=== PATIENT | male | born 1965 | race African-American/Black ===

== ENCOUNTER 2021-11-23 16:18 | Inpatient (IN) | payer OTHER ==
[2021-11-23] VITALS (32 sets, daily range): BP systolic 89–162; BP diastolic 42–101
[~2021-11-23] VITALS: Ht 188 cm; Wt 128.1 kg
[2021-11-23 16:52] LABS: HEMOGLOBIN 13.9 g/dl (14.0-18.0); IMMATURE GRANULOCYTES 0.2 % (0.0-5.0); MEAN CELL VOLUME 93.7 fL CALC (80.0-100.0); MEAN CORPUSCULAR HGB 30.3 pG CALC (26.0-32.0); MEAN CORPUSCULAR HGB CONC 32.3 g/dL CAL (32.0-36.0); NEUT# 2.62 thou/uL (1.82-7.42); RED BLOOD COUNT 4.59 mill/uL (4.70-6.10); RED CELL DISTRI WIDTH 12.6 % (11.5-15.5)
[2021-11-23] MEDS ORDERED: PROTONIX20 M1 PO (17:02)
[2021-11-23] MEDS ORDERED: LISINOPRIL10 MG PO (17:03)
[2021-11-23] MEDS ORDERED: METFORMIN HCL1000 MG PO (17:03)
[2021-11-23] MEDS ORDERED: LIPITOR20 M1 PO (17:04)
[2021-11-23] MEDS ORDERED: ASPIRIN ADULT L81 M3 PO (17:06)
[2021-11-23] MEDS ORDERED: NOVOLIN N100 UNIT SC (17:08)
[2021-11-23 17:10] LABS: ALBUMIN 4.6 g/dL (3.2-5.0); ALKALINE PHOSPHATASE 41 u/l (38-126); ANION GAP 14 (6-22 (CALC)); BILIRUBIN, TOTAL 0.3 mg/dL (0.0-1.4); BUN 17 mg/dL (9-20); BUN/CREATININE RATIO 14 (12-20 (CALC)); CARBON DIOXIDE 30 mmol/l (22-30); CHLORIDE 100 mmol/l (95-108); CREATININE 1.2 mg/dL (0.7-1.3); GFR FOR AFR.AMER. > 60 ML/MIN (>=60 (CALC)); GFR OTHER RACES > 60 ML/MIN (>=60 (CALC)); POTASSIUM 4.3 mmol/l (3.5-5.1); SGOT/AST 33 u/l (17-59); SODIUM 139 mmol/l (137-146); TOTAL PROTEIN 7.9 g/dL (6.3-8.2)
[2021-11-23] MEDS ORDERED: NOVOLIN R100 UNIT/M (17:11)
[2021-11-24] VITALS (65 sets, daily range): BP systolic 91–145; BP diastolic 46–100
[2021-11-24 05:16] LABS: HEMATOCRIT 41.3 % (39.0-50.0); HEMOGLOBIN 13.2 g/dl (14.0-18.0); IMMATURE GRANULOCYTES 0.2 % (0.0-5.0); MEAN CELL VOLUME 94.1 fL CALC (80.0-100.0); MEAN CORPUSCULAR HGB 30.1 pG CALC (26.0-32.0); NEUT# 1.39 thou/uL (1.82-7.42); RED BLOOD COUNT 4.39 mill/uL (4.70-6.10); RED CELL DISTRI WIDTH 12.7 % (11.5-15.5)
[2021-11-24 05:35] LABS: ANION GAP 13 (6-22 (CALC)); BUN 13 mg/dL (9-20); BUN/CREATININE RATIO 15 (12-20 (CALC)); CARBON DIOXIDE 26 mmol/l (22-30); CHLORIDE 103 mmol/l (95-108); CREATININE 0.8 mg/dL (0.7-1.3); GFR FOR AFR.AMER. > 60 ML/MIN (>=60 (CALC)); GFR OTHER RACES > 60 ML/MIN (>=60 (CALC)); POTASSIUM 4.1 mmol/l (3.5-5.1); SODIUM 138 mmol/l (137-146)
[2021-11-25] VITALS (10 sets, daily range): BP systolic 106–163; BP diastolic 58–107
[2021-11-25 06:30] LABS: ANION GAP 12 (6-22 (CALC)); BUN 11 mg/dL (9-20); BUN/CREATININE RATIO 13 (12-20 (CALC)); CALCULATED LDLCHOLESTEROL 97 mg/dL (62-129 (CALC)); CARBON DIOXIDE 29 mmol/l (22-30); CHLORIDE 101 mmol/l (95-108); CREATININE 0.8 mg/dL (0.7-1.3); GFR FOR AFR.AMER. > 60 ML/MIN (>=60 (CALC)); GFR OTHER RACES > 60 ML/MIN (>=60 (CALC)); HDL CHOLESTEROL 28 mg/dL (>=40); MAGNESIUM 1.9 mg/dL (1.6-2.3); POTASSIUM 4.4 mmol/l (3.5-5.1); SODIUM 137 mmol/l (137-146); TOTAL CHOLESTEROL 145 mg/dl (0-199); TOTAL TRIGLYCERIDES 101 mg/dl (30-149); VLDL CHOLESTROL 20 mg/dl (8-62 (CALC))
[2021-11-25] MEDS ORDERED: LOPRESSOR 550 MG/TAB PO (08:57)
[2021-11-25] MEDS ORDERED: ELIQUIS5 MG PO (08:57)
== END 2021-11-25 10:45 | DRG 310 ==
LOC: ED 16:18 → ED-I 18:10 → ED 18:44 → ICU 18:45
PROVIDERS: Emergency Medicine; Internal Medicine; ADMIT Internal Medicine; ATTEND Internal Medicine
DX: I48.92 Unspecified atrial flutter (principal); I48.0 Paroxysmal atrial fibrillation; I10 Essential (primary) hypertension; E11.9 Type 2 diabetes mellitus without complications; K21.9 Gastro-esophageal reflux disease without esophagitis; J45.909 Unspecified asthma, uncomplicated; Z79.84 Long term (current) use of oral hypoglycemic drugs; Z79.4 Long term (current) use of insulin
CPT/HCPCS: J1650